=== PATIENT | female | born 1990 | race American Indian/Alaskan Native ===

== ENCOUNTER 2020-07-04 05:43 | Day surgery (SDC) | payer OTHER ==
--- NOTE | 2020-07-01 12:25 | History and Physical Report ---
History of Present Illness Date of examination: 06/27/20 Date of admission: 07/04/20 Chief complaint: irregular bleeding mass of labia/vulva History of present illness: Visit Type: Pre-Op CC: pre op. History of Present Illness: pt presents for pre op visit: Hysteroscopy/ myosure........................................................................Jennifer Trimble June 27, 2020 1:35 PM Mask, Patient denies fever, cough, shortness of breath and exposure to COVID-19. Pt here for preOP visit for hysteroscopy with myosure removal of endometrial mass was well as removal of vaginal tissue of the right and left labia minors bilaterally. Pt has h/o bleeding between periods for the last several months. SIS shows 1cm endometrial mass. All risk/benefits/alternatives were d/w pt and questions were addressed and answered. Consents signed and placed on the chart. Vital Signs: Patient Profile: 30 Years Old Female LMP: 06/24/2020 Height: 65 inches Weight: 213 pounds BMI: 35.44 Temp: 98.3 degrees F BP sittin / 80 (left arm) Menstrual History: LMP (date): 06/24/2020 Current Method of Contraception: Abstinence Date of Last Pap Smear: 03/07/2020 Past History : 0 [employer] History Uterine Surgery (not C/S): negative Operations: positive POLYP REMOVAL Hospitalizations: negative Anesthesia Complications: negative Abnormal PAP: negative Uterine Anomaly: negative MARY Exposure: negative Infertility: negative Infection History HIV Risk Eval: no Personal hx. of genital herpes: no Partner hx. of genital herpes: no Hx of STD: chlamydia Active Medications (reviewed today): ALLERGY PILLS () MUTLI VITAMINS () Current Allergies (reviewed today): No known allergies Past Medical History: Reviewed history from 01/30/2016 and no changes required: Negative Past Medical History Past Surgical History: Reviewed history from 01/30/2016 and no changes required: positive POLYP REMOVAL Family History Summary: Reviewed history Last on 03/07/2020 and no changes required:07/01/2020 General Comments - FH: DM HTN BREAST CA Social History: Reviewed history from 01/30/2016 and no changes required: Patient is Smoking History: Patient has never smoked. occ etoh, no tobacco, no drugs Risk Factors: Smoked Tobacco Use: Never smoker Smokeless Tobacco Use: Never Drug use: no HIV high-risk behavior: no Alcohol use: yes Exercise: yes Seatbelt use: 100 % PAP Smear History: Date of Last PAP Smear: 03/07/2020 [[facility]] [Labs In-House] Physical Exam Appearance: well developed, well nourished, no acute distress Other Exams Lungs: no rales, rhonchi, or wheezes Heart: S1, S2, no murmur, rub, or gallop Abdomen: soft, non-tender, no masses, bowel sounds normal Skin: no ulcers, xanthomas Extremities: normal alignment, no joint enlargement, crepitus, masses or tenderness; normal tone and strength Genitourinary Exam Vulva: fleshy mass noted on left and right inner labia measuring about 2-3cm in lenght each Urethral meatus: normal size and location, no lesions or discharge Bladder: no cystocele Vagina: normal appearance, no discharge, lesions. No evidence of cystocele or rectocele. Past History Past Medical History: other (see hpi) Past Surgical History: other (see hpi) [employer] History: other (see hpi) Family/Genetic History: other (see hpi) Social history: other (see hpi) Medications and Allergies Allergies Allergy/AdvReac Type Severity Reaction Status Date / Time No Known Allergies Allergy Unverified 06/30/20 08:24 Home Medications Medication Instructions Recorded Confirmed Last Taken Type Triamcinolone Acetonide [24 Hour 1 spray IH DAILY 06/30/20 06/30/20 Unknown History Nasal Allergy] Review of Systems All systems: negative - Physical Exam Cardiovascular: Normal S1, Normal S2 Lungs: Positive: Clear to auscultation, Normal air movement Abdomen: Positive: normal appearance, soft. Negative: distention, tenderness, guarding Genitourinary (Female): Positive: other (labial masses b/l) Results All other labs normal. Assessment and Plan - Patient Problems (1) Metrorrhagia Status: Acute Plan to address problem: -scheduled procedures: hysteroscopy, myosure removal of endometrial mass, D&C -consents signed and placed on the chart -all risk, benefits and alternatives were d/w pt and questions were addressed and answered. (2) Vulvar mass Status: Acute Plan to address problem: -to OR for planned removal of masses bilaterally. (3) Endometrial mass Status: Acute Plan to address problem: -scheduled procedures: hysteroscopy, myosure removal of endometrial mass, D&C -consents signed and placed on the chart -all risk, benefits and alternatives were d/w pt and questions were addressed and answered.
[2020-07-04] MEDS ORDERED: LACTATED RINGERS 1,000 ML IV SCH (06:00)
[2020-07-04] MEDS ORDERED: ceFAZolin/Water 2 GM/20 ML 2 GM/20 ML SYRINGE IV NR (06:00)
[2020-07-04] MEDS ORDERED: HYDROmorphone 1 MG/1 ML INJ IV PRN ×2 (07:14)
[2020-07-04] MEDS ORDERED: ONDANSETRON 4 MG/2 ML INJ IV PRN (07:14)
--- NOTE | 2020-07-04 07:15 | Anesthesia Day of Surgery ---
Anesthesia Day of Surgery - Day of Surgery Patient Examined: Yes Patient H&P Reviewed: Yes Patient is NPO: Yes
--- NOTE | 2020-07-04 07:16 | Anesthesia Consultation ---
Anesthesia Consult and Med Hx Date of service: 07/04/20 - Airway Anesthetic Teeth Evaluation: Chipped ROM Head & Neck: Adequate Mental/Hyoid Distance: Adequate Mallampati Class: Class I Intubation Access Assessment: Good - Pre-Operative Health Status ASA Pre-Surgery Classification: ASA2 Proposed Anesthetic Plan: General - Pulmonary Hx Smoking: No - Central Nervous System Hx Psychiatric Problems: Yes (Anxiety) - Gastrointestinal Hx Gastroesophageal Reflux Disease: No - Endocrine Hx Renal Disease: No Hx Liver Disease: No Hx Non-Insulin Dependent Diabetes: No - Hematic Hx Sickle Cell Disease: No - Other Systems Hx Alcohol Use: Yes (Occas) Hx Cancer: No Hx Obesity: Yes
[2020-07-04] MEDS ORDERED: KETOROLAC 30 MG/1 ML INJ ONE (07:25)
[2020-07-04] MEDS ORDERED: LIDOCAINE MPF (2%) 20 MG/1 ML VIAL 5 ML ONE (07:25)
[2020-07-04] MEDS ORDERED: ONDANSETRON 4 MG/2 ML INJ ONE (07:25)
[2020-07-04] MEDS ORDERED: fentaNYL 100 MCG/2 ML INJ ONE (07:26)
[2020-07-04] MEDS ORDERED: propofoL 200 MG/20 ML VIAL IV ONE (07:26)
[2020-07-04] MEDS ORDERED: dexAMETHasone 20 MG/5 ML VIAL ONE (08:00)
[2020-07-04] MEDS ORDERED: SODIUM CHLORIDE 0.9% IRRIG SOLN 2000 ML IR ONE ×2 (08:15)
[2020-07-04] MEDS ORDERED: LACTATED RINGERS 1,000 ML ONE (08:34)
--- NOTE | 2020-07-04 08:39 | Operative Report ---
Operative Report Operative Report: Date of procedure: 07/04/2020 Pre-operative diagnosis: Metrorrhagia Vaginal mass left and right labia Post-operative diagnosis: Same Procedure name(s): Hysteroscopy Myosure Removal of left and right labial masses Surgeon: Dr. Browning Combination Saw Operator: Certified surgical scrub imaging assistant Anesthesia: LMA EBL:l General Urine output: 25 cc of clear urine out via straight catheterization prior to the onset of the procedure Fluids: 1 L Findings: Fleshy masses noted on left and right labia minora Thickened endometrium with endometrial mass noted on hysteroscopy Indications: Patient noted to have spotting between menstrual periods. Patient underwent evaluation in office with saline infused sonogram was noted to have approximately 1 cm endometrial mass noted. Patient was also noted to have labial masses bilaterally and desired removal. All risk benefits and alternatives were discussed with the patient. Consents were signed and placed on the chart. Procedure: Patient was taken to the operating room where she was placed under general anesthesia. She was placed in dorsal lithotomy position with legs in Nasir stirrups. She was then prepped and draped in sterile fashion. Straight catheterization was performed.. The anterior lip of the cervix was grasped with a tenaculum and the uterus was sounded to approximately 7 cm. As at this point that the cervix was dilated to allow the passage of a Myosure hysteroscope. Removal of uterine mass as well as thickened endometrial tissue was performed. Uterine cavity was noted to have a smooth appearance. Hemostasis was noted to be excellent. Attention was then turned to the right labia in which the mass was transected at the base. Suture-ligated. With excellent hemostasis noted. Mass was handed off to pathology. This was repeated on the left side. Patient was taken to the recovery room awake and in stable condition. Patient was given Ancef prior to the onset of the procedure. All laps and needle counts were correct. Patient tolerated the procedure well.
--- NOTE | 2020-07-04 08:42 | Short Stay Summary ---
Short Stay Documentation Date of service: 07/04/20 - History H&P: obtained from office Social history: other (see hpi) - Allergies and Medications Current Medications: Allergies No Known Allergies Allergy (Unverified 06/30/20 08:24) Home Medications Medication Instructions Recorded Confirmed Last Taken Type Triamcinolone Acetonide [24 Hour 1 spray IH DAILY 06/30/20 06/30/20 Unknown History Nasal Allergy] Ibuprofen [Motrin 800 MG tab] 800 mg PO Q8HR PRN #30 tablet 07/04/20 Unknown Rx Active Medications Hydromorphone HCl (Hydromorphone 1 Mg/1 Ml Inj) 0.25 mg IV Q10MIN PRN PRN Reason: Pain, Moderate (4-6) Stop: 07/04/20 23:00 Hydromorphone HCl (Hydromorphone 1 Mg/1 Ml Inj) 0.5 mg IV Q10MIN PRN PRN Reason: Pain , Severe (7-10) Stop: 07/04/20 23:00 Cefazolin Sodium (Ancef/Sterile Water 2 Gm/20 Ml) 2 gm in 20 mls @ 80 mls/hr IV PREOP NR; Protocol Stop: 07/04/20 21:00 Lactated Ringer's (Lactated Ringers) 1,000 mls @ 125 mls/hr IV DIRECT SELINA Last Admin: 07/04/20 06:45 Dose: 125 mls/hr Documented by: Ondansetron HCl (Ondansetron 4 Mg/2 Ml Inj) 4 mg IV ONCE PRN PRN Reason: Nausea And Vomiting Stop: 07/04/20 23:00 - Brief post op/procedure progress note Date of procedure: 07/04/20 Pre-op diagnosis: endormetrial mass; vaginal mass x2 Post-op diagnosis: same Procedure: removal of left and right vaginal masses hysteroscopy myosure removal of endometrial mass Anesthesia: MAC Findings: see op note Surgeon: STEFANI HARRINGTON Estimated blood loss: minimal Pathology: list (left and right vaginal masses; endometrial mass and tissue) Specimen disposition: to lab Condition: stable - Hospital course Hospital course: Patient was admitted and underwent above-stated procedure. Patient will be evaluated in the PACU and will be discharged home when she gets met criteria for discharge. Patient will follow-up in the office in 1 week for postoperative checkup. - Disposition Condition at discharge: Good Disposition: DC-01 TO HOME OR SELFCARE - Discharge Diagnoses (1) Metrorrhagia Status: Acute (2) Vulvar mass Status: Acute (3) Endometrial mass Status: Acute Short Stay Discharge Plan Weight Bearing Status: Weight Bear as Tolerated Diet: regular Follow up with: KAMAR LOPEZ MD [Primary Care Provider] - 7 Days Prescriptions: Ibuprofen [Motrin 800 MG tab] 800 mg PO Q8HR PRN #30 tablet PRN Reason: Pain, Moderate (4-6)
--- NOTE | 2020-07-04 09:21 | Post Anesthesia Evaluation ---
- Post Anesthesia Evaluation Patient Participated: Yes Airway Patent: Yes Stable Respiratory Function: Yes Nausea/Vomiting: No Temp > 96.8F: Yes Pain Manageable: Yes Adequeate Hydration: Yes Anesthesia Complications: No Block Receding Appropriately: Not Applicable Patient on Ventilator: No
[2020-07-04 10:04] VITALS: BP 118/64
== END 2020-07-04 05:44 | disposition home or self-care (01) ==
LOC: OR 05:43
PROVIDERS: ATTEND Obstetrics & Gynecology
DX: N92.1 Excessive and frequent menstruation with irregular cycle (principal); N89.8 Other specified noninflammatory disorders of vagina; N84.3 Polyp of vulva; N90.89 Other specified noninflammatory disorders of vulva and perineum; N94.89 Other specified conditions associated with female genital organs and menstrual cycle; E66.9 Obesity, unspecified; F41.9 Anxiety disorder, unspecified; Z72.89 Other problems related to lifestyle; Z79.899 Other long term (current) drug therapy; Z98.890 Other specified postprocedural states; Z68.35 Body mass index [BMI] 35.0-35.9, adult
CPT/HCPCS: 11421; 11423; 58558; 81025; 88305; A4217; J0690; J1100; J1170; J1885; J2405; J2704; J3010; J7120